=== PATIENT | female | born 1970 | race Caucasian/White ===

== ENCOUNTER 2024-06-21 20:40 | Emergency (ER) | payer BC, SELFPAY ==
[2024-06-21 20:45] VITALS: BP 186/94
[2024-06-21 21:09] LABS: % Basophils 0.6 % (0-2); % Eosinophils 1.3 % (0-6); % Immature Granulocytes 0.4 % (0-0.5); % Lymphocytes 38.1 % (20.5-51.1); % Monocytes 5.7 % (1.7-9.3); % Neutrophils 53.9 % (42.2-75.2); Absolute Basophils 0.1 10^3/uL (0-0.2); Absolute Eosinophils 0.1 10^3/uL (0-0.7); Absolute Lymphocytes 3.3 10^3/uL (1.2-3.4); Absolute Monocytes 0.5 10^3/uL (0.1-0.6); Absolute Neutrophils 4.6 10^3/uL (1.4-6.5); Hemoglobin 13.7 g/dL (12.0-16.0); Mean Corp Hgb Conc. 34.3 g/dL (33.0-37.0); Mean Corpuscular Hgb 29.2 pg (27.0-31.0); Mean Corpuscular Volume 85.3 fL (81.0-99.0); Mean Platelet Volume 9.8 fL (7.4-10.4); Nucleated Red Blood Cells % 0 %; Platelet Count 290 10^3/uL (130-400); Red Blood Cell Count 4.69 10^6/uL (4.20-5.40); Red Cell Dist. Width 14.5 % (11.5-14.5); White Blood Cell Count 8.5 10^3/uL (4.8-10.8)
[2024-06-21 21:23] LABS: ALT (SGPT) 18 U/L (0-35); AST (SGOT) 19 U/L (14-36); Albumin 4.4 g/dl (3.5-5.0); Alkaline Phosphatase 63 U/L (38-126); Blood Urea Nitrogen 18 mg/dl (7-17); Calcium 9.8 mg/dl (8.4-10.2); Carbon Dioxide 26 mmol/L (22-30); Chloride 105 mmol/L (98-107); Glucose 134 mg/dl (70-99); Potassium 3.7 mmol/L (3.5-5.1); Sodium 140 mmol/L (135-145); Total Bilirubin 0.2 mg/dl (0.2-1.3); Total Protein 6.9 g/dl (6.3-8.2); eGFR > 60.00
[2024-06-21 23:14] VITALS: BP 143/90
--- NOTE | 2024-06-21 23:26 | ED.GENMED ---
History of Present Illness
General
Chief Complaint: Cardiac Symptoms
Time Seen by Provider: 06/21/24 23:24
History of Present Illness
History of Present Illness:
HPI: Patient presents with palpitations and concerns for anxiety. Heart rates at home has been in the 140s and then went up into the 170s. 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 Overall she feels improved
currently spontaneously. She never had any chest pain.
EXAM:
GENERAL: Well appearing in no distress
HEENT: Moist oral mucosa
CARDIOVASCULAR: No murmurs, normal heart rate, regular rhythm, No chest wall tenderness
PULMONARY: No respiratory distress, breath sounds are clear and equal
ABDOMEN: Soft with no peritoneal signs, no tenderness
NEUROLOGIC: Excellent strength all extremities, no coordination deficits
PSYCHIATRIC: Appropriate mental status, normal insight and judgement
EXTREMITIES: Nontender, no edema, moves all extremities equally
SKIN: No rash, no lesions
TIME OF INITIAL ENCOUNTER: 11:30 PM
NUMBER AND COMPLEXITY OF PROBLEMS ADDRESSED AT THE ENCOUNTER
� Chronic conditions affecting care: Migraines, squama cell carcinoma, anxiety
� Acute Exacerbation and/or Progression of Chronic Illness: This is an acute problem
� Differential Diagnosis includes: Palpitations, PACs, PVCs, A-fib, SVT, anxiety
AMOUNT AND/OR COMPLEXITY OF DATA TO BE REVIEWED AND ANALYZED
� I performed an independent evaluation of and my interpretation is:
EKG: Sinus 105, nonspecific ST abnormality, no significant change from 06/11/2019
CT:
X-rays:
Laboratory Studies: CBC normal, chemistries unremarkable
Other:
� Review of other/old records: The patient was seen here with dizziness in 2019
� Clinical information was obtained by an independent historian: None needed
� Prescriptions/Medications Considered but not given:
� Further testing considered but not performed:
RISK OF COMPLICATIONS AND/OR MORBIDITY OR MORTALITY OF PATIENT MANAGEMENT
� Social determinants of health affecting care: Lives at home
� Discussion with other providers:
� Escalation of care including admission/observation vs risk of discharge considered: While in the ED, the patient's rhythm is sinus and heart rate is under 100. She is very well-appearing currently as of 11:30 PM with no
symptoms. She has a sample distributor to follow-up with through [facility].
Past History
Past History
ED Past Medical History: Other (Ocular migraines in the past)
ED Past Surgical History: None
Social History
Tobacco: Non-smoker
Alcohol: None
Drug: None
Personal:
Living: with family
Employment: Employed
Family History
Family History: Negative Early CAD
Phy Exam
Physical Exam
Physical Exam:
See HPI
Course
Orders/Labs/Results
Orders:
Orders
06/21/24 20:49
Electrocardiogram (*1) Urgent
Reason for Study: Palpitations
06/21/24 20:50
EKG- Treatment ONCE
06/21/24 20:59
CMP [Comprehensive Metabolic Panel] Urgent
Complete Blood Count/With Diff Urgent
Abnormal Lab Results
06/21/24
20:59
BUN 18 H mg/dl
(7-17)
Glucose 134 H mg/dl
(70-99)
06/21/24 20:59
06/21/24 20:59
Vital Signs
Initial and Last Documented VS:
Initial Vital Signs
Temp Pulse Resp BP Pulse Ox
98 F 102 24 186/94 94
06/21/24 20:45 06/21/24 20:45 06/21/24 20:45 06/21/24 20:45 06/21/24 20:45
Last Documented Vital Signs
Temp Pulse Resp BP Pulse Ox
98.3 F 103 24 143/90 100
06/21/24 23:14 06/21/24 23:14 06/21/24 20:45 06/21/24 23:14 06/21/24 23:14
*Critical Care Note
Total Time (30-74mins, 75-104mins- exclusive of procedures): Not Applicable
ED Attending Note
-
Portions of this chart may have been created with voice recognition software.� Occasional wrong word or��sound alike� substitutions may have occurred due to the inherent limitations of voice recognition software.
Discharge Plan
Departure
Patient Disposition: Home (Routine Discharge)
Date of Disposition: 06/21/24
Time of Disposition: 23:32
Patient with high blood pressure during this ER visit?: Yes
Discharge Problem:
Palpitations
Instructions: Palpitations ED
Prescriptions:
No Action
ondansetron 4 MG tablet,disintegrating
4 mg PO TIDPRN PRN (Reason: nausea/vomiting) Qty: 10 0RF
Activity Restrictions/Additional Instructions:
The cause of your symptoms is unclear. Your EKG and blood work are both normal. Please follow-up with your sample distributor. Return here if worse.
Interventions
Interventions:
*Risk Screen - Suicide Last Done: 06/21/24 20:45
*Neglect/Abuse Screening Last Done: 06/21/24 20:45
Discharge Date and Time
Print Language: [id number]
== END 2024-06-21 23:53 | disposition home or self-care (01) ==
LOC: EMR 20:40
PROVIDERS: Emergency Medicine; EMERGENCY PHYSICIAN Emergency Medicine; FAMILY PHYSICIAN Nurse Practitioner Primary Care
DX: R00.2 Palpitations (principal); R03.0 Elevated blood-pressure reading, without diagnosis of hypertension; F41.9 Anxiety disorder, unspecified
CPT/HCPCS: 99283; 80053; 85025; 93005